=== PATIENT | male | born 1980 | race Caucasian/White ===

== ENCOUNTER 2017-02-02 17:00 | Emergency (ER) | payer SELFPAY | END 2017-02-02 18:59 | disposition home or self-care (01) | LOC: CED 17:00 → CFTX 17:00 | DX: L03.323 Acute lymphangitis of chest wall (principal); I10 Essential (primary) hypertension; Z79.899 Other long term (current) drug therapy; F17.210 Nicotine dependence, cigarettes, uncomplicated; Z88.0 Allergy status to penicillin; W57.XXXA Bitten or stung by nonvenomous insect and other nonvenomous arthropods, initial encounter | CPT/HCPCS: 99281 ==